=== PATIENT | male | born 1990 | race Caucasian/White ===

== ENCOUNTER 2018-07-15 18:06 | Emergency (ER) | payer OTHER ==
--- NOTE | 2018-07-15 18:46 | EDPHY ---
H & P Time Seen by Provider: 07/15/18 18:30 HPI/ROS: CHIEF COMPLAINT: Chest pain after chemical exposure HISTORY OF PRESENT ILLNESS: 28-year-old man was pouring sulfuric acid and hydrogen peroxide into a waste container. This happened at 4:45 p.m.. The container that he was pouring it into had chloride salts, aluminum chloride, yttrium fluoride, ammonium hydroxide, and sulfuric acid. He specifically texted his label maker and confirmed no hydrofluoric acid. Pain is in his anterior chest in the center. It is mild to moderate. It is not associated with trouble breathing or wheezing. He basically got an inhalation when he was pouring it but did not sustain any splashes or skin contact or ingestion. REVIEW OF SYSTEMS: Eye: no change in vision ENT: no sore throat Cardiac: HPI Pulmonary: no cough or SOB Abdomen: no vomiting, diarrhea, abdominal pain Musculoskeletal: no back pain Skin: no rash Neuro: no headache Constitutional: no fever : no urinary symptoms A comprehensive 10 point review of systems is otherwise negative aside from elements mentioned in the history of present illness. PAST MEDICAL HISTORY: asthma, GERD, eczema R acl Social history: nonsmoker, works in a lab General Appearance: Alert and conversant, cooperative. Eyes: No scleral icterus. ENT, Mouth: Normal mucous membranes. No sebastian intraorally. Normal voice. Respiratory: Normal respiratory effort, breath sounds equal, lungs are clear to auscultation. No wheezing. Cardiovascular: Regular rate and rhythm. Gastrointestinal: Abdomen is soft and non tender. Neurological: Alert, face symmetric, normal motor and sensory in extremities. Skin: Warm and dry, no rashes. Musculoskeletal: No peripheral edema. Psychiatric: Not agitated. Emergency Department course/MDM: [facility] case # [id number]. Recommendation from [facility] physician: Dr. Rutherford get ionized calcium, observe until symptom improvement or 4 hours after exposure which would be 2044. 1939: Ionized calcium normal, will discharge if clinically not worsened vital signs stable after 4 hr from exposure. 2037: Oxygen saturation 96%, lungs clear to auscultation. He had a little bit of increase of his chest pain since I last examined him but he said now it has gone down and is almost gone. Discharge after 4 hr of observation without evidence of pulmonary edema or other pulmonary complication. Smoking Status: Never smoked Constitutional: Initial Vital Signs Temperature (C) 36.9 C 07/15/18 18:12 Heart Rate 82 07/15/18 18:12 Respiratory Rate 16 07/15/18 18:12 Blood Pressure 134/83 H 07/15/18 18:12 O2 Sat (%) 96 07/15/18 18:12 O2 Delivery Mode Room Air Allergies/Adverse Reactions: cephalexin monohydrate [From Keflex] Allergy (Verified 07/15/18 18:11) Penicillins Allergy (Verified 07/15/18 18:11) PEANUTS Allergy (Uncoded 07/15/18 18:11) Home Medications: Medication Instructions Recorded Zyrtec 02/23/11 Albuterol 07/15/18 Omeprazole 07/15/18 Medical Decision Making - Data Points Laboratory Results: 07/15/18 19:20 Ionized Calcium 1.20 MMOL/L MMOL/L (1.12-1.30) Departure - Departure Disposition: Home, Routine, Self-Care Clinical Impression: Exposure to chemical inhalation Condition: Good Instructions: Additional Information Additional Instructions: Please return to the emergency department right away for recurrent severe chest pain or trouble breathing. No work restrictions. Normal ionized calcium. Referrals: Work Comp Ref/Restrictions [Outside] - As per Instructions
[2018-07-15 20:42] VITALS: BP 139/82
== END 2018-07-15 20:42 | disposition home or self-care (01) ==
DX: T59.891A Toxic effect of other specified gases, fumes and vapors, accidental (unintentional), initial encounter (principal); R07.9 Chest pain, unspecified